=== PATIENT | female | born 1990 | race Caucasian/White ===

== ENCOUNTER 2017-09-15 00:50 | Emergency (ER) | payer SELFPAY ==
[2017-09-15 01:25] VITALS: BP 132/66; PULSE 77; RESP 18; TEMP 98.8; O2SAT 100
[2017-09-15] MEDS ORDERED: cefTRIAXone (Rocephin) 250 mg Inj IM ONE (01:29)
--- NOTE | 2017-09-15 01:46 | ED PDOC ---
HPI: Female Pain Time Seen by Provider: 09/15/17 01:13 Chief Complaint (Nursing): Female Genitourinary Chief Complaint (Provider): Chlamydia Exposure History Per: Patient History/Exam Limitations: no limitations Additional Complaint(s): Patient is a 27 y/o female who requests to be treated for Chlamydia after her boyfriend was diagnosed with it. She has no symptoms, including vaginal or urinary symptoms, back pain, fever, or abdominal pain. PMD: None Provided Past Medical History Reviewed: Historical Data, Nursing Documentation, Vital Signs Vital Signs: Last Vital Signs Temp 98.8 F 09/15/17 01:22 Pulse 77 09/15/17 01:22 Resp 18 09/15/17 01:22 BP 132/66 09/15/17 01:22 Pulse Ox 100 09/15/17 01:22 - Medical History PMH: No Chronic Diseases - Surgical History Surgical History: No Surg Hx - Family History Family History: States: Unknown Family Hx - Home Medications Home Medications: Ambulatory Orders Medication Instructions Recorded Doxycycline Hyclate 100 mg PO BID #14 capsule 09/15/17 - Allergies Allergies/Adverse Reactions: Allergies Allergy/AdvReac Type Severity Reaction Status Date / Time No Known Allergies Allergy Verified 09/15/17 01:21 Review of Systems ROS Statement: Except As Marked, All Systems Reviewed And Found Negative Constitutional: Negative for: Fever Gastrointestinal: Negative for: Abdominal Pain Genitourinary Female: Negative for: Dysuria, Frequency, Incontinence, Hematuria , Vaginal Discharge, Vaginal Bleeding, Pelvic Pain Musculoskeletal: Negative for: Back Pain Physical Exam - Reviewed Nursing Documentation Reviewed: Yes Vital Signs Reviewed: Yes - Physical Exam Appears: Positive for: Well, Non-toxic, No Acute Distress Head Exam: Positive for: ATRAUMATIC, NORMAL INSPECTION, NORMOCEPHALIC Skin: Positive for: Normal Color, Warm, Dry Eye Exam: Positive for: Normal appearance, EOMI, PERRL. Negative for: Nystagmus ENT: Positive for: Normal ENT Inspection Neck: Positive for: Normal, Painless ROM, Supple Cardiovascular/Chest: Positive for: Regular Rate, Rhythm. Negative for: Edema, Murmur Respiratory: Positive for: CNT, Normal Breath Sounds Gastrointestinal/Abdominal: Positive for: Normal Exam, Bowel Sounds, Soft. Negative for: Tenderness Back: Positive for: Normal Inspection Extremity: Positive for: Normal ROM. Negative for: Pedal Edema, Deformity Neurologic/Psych: Positive for: Alert, Oriented - ECG O2 Sat by Pulse Oximetry: 100 (RA) Pulse Ox Interpretation: Normal Medical Decision Making Medical Decision Making: Time: :28 Initial Impression: 27 y/o female with chlamydia exposure Initial Plan: --Urine --Chlamydia/GC RNA, TNA --Doryx --Rocephin --Urinalysis Time: :40 --Patient is stable upon discharge Scribe Attestation: Documented by Guanaco Newman, acting as a scribe for Dr. Mau Khan MD. Provider Scribe Attestation: All medical record entries made by the Scribe were at my direction and personally dictated by me. I have reviewed the chart and agree that the record accurately reflects my personal performance of the history, physical exam, medical decision making, and the department course for this patient. I have also personally directed, reviewed, and agree with the discharge instructions and disposition. Disposition - Clinical Impression Clinical Impression: Exposure to chlamydia - Patient ED Disposition Is Patient to be Admitted: No Counseled Patient/Family Regarding: Studies Performed, Diagnosis, Need For Followup, Rx Given - Disposition Disposition: Routine/Home Disposition Time: :40 Condition: STABLE Prescriptions: Doxycycline Hyclate 100 mg PO BID #14 capsule Instructions: Chlamydia (ED) Forms: [employer] ([place])
[2017-09-15] MEDS ORDERED: Sterile Water 10 ML IV ONE (01:47)
[2017-09-15] MEDS ORDERED: cefTRIAXone (Rocephin) 250 mg Inj ONE (01:48)
[2017-09-15 05:33] LABS: RBC URINE 3 /hpf (0-3); URINE BACTERIA RARE (<OCC); URINE BILIRUBIN NEGATIVE (NEGATIVE); URINE BLOOD MODERATE (NEGATIVE); URINE COLOR YELLOW (YELLOW); URINE GLUCOSE (UA) NEG (Normal); URINE KETONE NEGATIVE (NEGATIVE); URINE LEUKOCYTE ESTERASE LARGE Leu/uL (Negative); URINE PROTEIN 30 mg/dL (NEGATIVE); URINE UROBILINOGEN 0.2-1.0 mg/dL (0.2-1.0); WBC URINE 56 /hpf (0-5)
== END 2017-09-15 01:45 | disposition home or self-care (01) ==
LOC: H.ER 00:50
DX: A74.9 Chlamydial infection, unspecified (principal)
CPT/HCPCS: 81003; 81025; 87491; 87591; 96372; 99283; J0696

== ENCOUNTER 2017-11-04 15:11 | Emergency (ER) | payer MEDICAID ==
[2017-11-04 15:19] VITALS: BP 135/75; PULSE 98; RESP 17; TEMP 97.2; O2SAT 100
[2017-11-04] MEDS ORDERED: Fluconazole 150 MG TAB PO STA (15:54)
--- NOTE | 2017-11-04 17:00 | ED PDOC ---
HPI: General Adult Time Seen by Provider: 11/04/17 15:16 Chief Complaint (Nursing): Abdominal Pain Chief Complaint (Provider): Supapubic pain, vaginal discharge History Per: Patient History/Exam Limitations: no limitations Onset/Duration Of Symptoms: Days (2) Have you had recent travel within the past 21 days to any of the following countries: [place], [place], [place] or [place]?: No Additional Complaint(s): Pt states she has been having mild suprapubic cramping and white vaginal discharge. PT states that she also feels her external genitals are itchy. Pt denies fever/chills. PT was treated for chlamydia 1.5 months ago. She states her and her partner where both treated and they refrained from intercourse for a week post treatment. Pt states she has had yeast infections in the past and states her symptoms are similar. Past Medical History Reviewed: Historical Data, Nursing Documentation, Vital Signs Vital Signs: Last Vital Signs Temp 97.2 F L 11/04/17 15:16 Pulse 98 H 11/04/17 15:16 Resp 17 11/04/17 15:16 BP 135/75 11/04/17 15:16 Pulse Ox 100 11/04/17 15:16 - Medical History PMH: No Chronic Diseases - Surgical History Surgical History: No Surg Hx - Family History Family History: States: Unknown Family Hx - Living Arrangements Living Arrangements: With Family - Social History Current smoker - smoking cessation education provided: No Alcohol: None Drugs: Denies - Home Medications Home Medications: Ambulatory Orders Medication Instructions Recorded Doxycycline Hyclate 100 mg PO BID #14 capsule 09/15/17 - Allergies Allergies/Adverse Reactions: Allergies Allergy/AdvReac Type Severity Reaction Status Date / Time No Known Allergies Allergy Verified 09/15/17 01:21 Review of Systems ROS Statement: Except As Marked, All Systems Reviewed And Found Negative Constitutional: Negative for: Fever, Chills Genitourinary Female: Positive for: Vaginal Discharge, Pelvic Pain. Negative for: Dysuria Physical Exam - Reviewed Nursing Documentation Reviewed: Yes Vital Signs Reviewed: Yes - Physical Exam Appears: Positive for: Well, Non-toxic, No Acute Distress Head Exam: Positive for: ATRAUMATIC, NORMAL INSPECTION, NORMOCEPHALIC Skin: Positive for: Normal Color, Warm, DRY Eye Exam: Positive for: Normal appearance ENT: Positive for: Normal ENT Inspection Neck: Positive for: Normal, Painless ROM Cardiovascular/Chest: Positive for: Regular Rate, Rhythm Respiratory: Positive for: Normal Breath Sounds. Negative for: Accessory Muscle Use Gastrointestinal/Abdominal: Positive for: Normal Exam, Bowel Sounds, Soft. Negative for: Tenderness Pelvic Exam: Positive for: External Exam Normal, Bimanual Exam Normal, No Cerv. Motion Tender, Discharge (Yellow, homogenous). Negative for: Speculum Exam Normal, Cervicitis Back: Positive for: Normal Inspection Extremity: Positive for: Normal ROM Neurologic/Psych: Positive for: Alert, Oriented - ECG O2 Sat by Pulse Oximetry: 100 Medical Decision Making Medical Decision Making: Discussed discharge seen on exam and discharge consistent with yeast. Will treat for yeast and cultures sent for further evaluation Disposition - Clinical Impression Clinical Impression: Vaginitis - Patient ED Disposition Is Patient to be Admitted: No Counseled Patient/Family Regarding: Diagnosis, Need For Followup - Disposition Disposition: Routine/Home Disposition Time: 16:46 Condition: GOOD Instructions: Vaginitis (ED)
== END 2017-11-04 16:50 | disposition home or self-care (01) ==
LOC: H.ER 15:11
DX: N76.0 Acute vaginitis (principal)